=== PATIENT | female | born 1980 | race Caucasian/White ===

== ENCOUNTER 2017-12-17 01:00 | Emergency (ER) | payer OTHER ==
[~2017-12-17] VITALS: Ht 172.7 cm; Wt 113.6 kg
[2017-12-17 01:00] VITALS: TEMP 97.6
[2017-12-17 01:18] LABS: COLLECTION METHOD CATHETER
[2017-12-17 01:19] LABS: ALANINE AMINOTRANSFERASE 29 U/L (9-52); ALBUMIN 3.9 gm/dL (3.5-5.0); ALKALINE PHOSPHATASE 91 U/L (50-136); ANION GAP 14 mmol/L (7-16); AST,SGOT 22 U/L (15-37); BILIRUBIN,TOTAL 0.3 mg/dL (0.0-1.0); BLOOD UREA NITROGEN 8 mg/dL (7-17); CALCIUM 8.5 mg/dL (8.4-10.2); CARBON DIOXIDE 21 mmol/L (22-30); CHLORIDE 106 mmol/L (98-107); CREATININE, serum 0.78 mg/dL (0.52-1.25); GLUCOSE 163 mg/dL (74-106); POTASSIUM 3.1 mmol/L (3.4-5.0); SODIUM 142 mmol/L (137-145); TOTAL PROTEIN 7.5 gm/dL (6.4-8.2)
[2017-12-17 01:22] LABS: BASO % 0.2 % (0.0-2.0); EOS # 0.1 (0.0-0.7); EOS % 0.5 % (0-4.0); GRAN # 6.9 (1.4-6.5); GRAN % 61.3 % (42.2-75.2); HEMATOCRIT 37.1 % (37.0-47.0); HEMOGLOBIN 12.2 g/dl (12.5-16.0); LYMPH # 3.7 (1.2-3.4); MEAN CELL VOLUME 92 fl (80.0-100.0); MEAN CORPUSCULAR HEMOGLOBIN 30 pg (27.0-31.0); MEAN CORPUSCULAR HGB CONC 33 g/dl (33.0-37.0); MEAN PLATELET VOLUME 10.4 fl (7.4-10.4); MONO # 0.5 (0.1-0.6); MONO % 4.8 % (1.7-9.3); PLATELET COUNT 263 K/mm3 (130-400); RED BLOOD COUNT 4.04 M/mm3 (4.10-5.30); REDCELL DISTRIBUTION WIDTH-CV 13.2 % (11.5-14.5)
[2017-12-17 01:24] LABS: MUCOUS Present /lpf; PH 7 (5-8); SQUAMOUS EPITHELIAL 0-2 /hpf; URINE APPEARANCE Clear; URINE BACTERIA None Seen /hpf; URINE BILIRUBIN Negative (NEGATIVE); URINE BLOOD Negative (NEGATIVE); URINE COLOR Straw; URINE GLUCOSE 1+ (NEGATIVE); URINE KETONE Negative (NEGATIVE); URINE LEUKOCYTE ESTERASE Negative (NEGATIVE); URINE NITRATE Negative (NEGATIVE); URINE PROTEIN(semi-quant) Negative (NEGATIVE); URINE RBC 0-2 /hpf; URINE UROBILINOGEN Negative (NEGATIVE)
[2017-12-17 01:25] LABS: PROTHROMBIN TIME 11.7 SECONDS (9.7-12.8)
[2017-12-17 01:28] LABS: ACETAMINOPHEN < 10 ug/mL (10-30); ALCOHOL(ethanol),MEDICAL < 10 mg/dL; CREATINE KINASE 96 U/L (30-135); LIPASE 149 U/L (23-300); SALICYLATE < 1.0 mg/dL; TROPONIN-I < 0.012 ng/mL (0.000-0.034)
[2017-12-17 01:31] LABS: TRICYCLIC ANTIDEPRESS URINE NEGATIVE
[2017-12-17 01:45] LABS: PROLACTIN 107.1 ng/mL (3.0-18.6)
[2017-12-17 01:56] LABS: ARTERIAL BLD GAS O2 SATURATION 97.4 % (92-100); ARTERIAL BLD GAS TCO2 CT 21.5; ARTERIAL BLOOD GAS BASE EXCESS -2.5 (-2-2); ARTERIAL BLOOD GAS HCO3 20.6 meq/L (22-26); ARTERIAL BLOOD GAS PCO2 30.6 mmHg (35-45); ARTERIAL BLOOD GAS PO2 97.1 mmHg (80-100); ARTERIAL BLOOD GAS pH 7.45 (7.35-7.45)
[2017-12-17 02:12] VITALS: BP 163/83; PULSE 77
== END 2017-12-17 02:18 | disposition other institution (70) ==
LOC: COL.ER 01:00 → EDBD 01:07 → COL.ER 02:18
PROVIDERS: Emergency Medicine
DX: I61.4 Nontraumatic intracerebral hemorrhage in cerebellum (principal); Z90.710 Acquired absence of both cervix and uterus
CPT/HCPCS: J0330; J2250; Q9967

== ENCOUNTER 2018-06-15 12:30 | Outpatient (RCR) | payer OTHER | END 2018-06-19 | disposition home or self-care (01) | LOC: MKS.ESL.PT | DX: I69.193 Ataxia following nontraumatic intracerebral hemorrhage (principal); I69.122 Dysarthria following nontraumatic intracerebral hemorrhage; I69.191 Dysphagia following nontraumatic intracerebral hemorrhage; I69.119 Unspecified symptoms and signs involving cognitive functions following nontraumatic intracerebral hemorrhage; I10 Essential (primary) hypertension; Z87.891 Personal history of nicotine dependence ==

== ENCOUNTER → 2018-10-25 | Outpatient (RCR) | payer OTHER | END | disposition still patient (30) | LOC: MKS.ESL.PT → MKS.ESL.OT 07-27 14:34 → MKS.ESL.PT 07-27 14:34 → MKS.ESL.OT 08-31 10:30 → WSST 09-04 12:45 → MKS.ESL.PT 09-06 13:15 → MKS.ESL.OT 09-08 15:30 → WSST 09-11 14:00 → MKS.ESL.OT 09-14 13:00 → MKS.ESL.PT 09-20 12:30 → MKS.ESL.OT 09-22 11:15 → WSST 09-27 12:45 → MKS.ESL.OT 09-29 14:30 → WSST 10-02 12:45 → MKS.ESL.PT 10-03 14:15 → MKS.ESL.OT 10-06 14:00 → MKS.ESL.PT 10-12 16:00 → WSST 10-17 11:15 → MKS.ESL.OT 10-19 13:45 → MKS.ESL.PT 10-24 15:30 → WSST 11:15 | DX: I69.193 Ataxia following nontraumatic intracerebral hemorrhage (principal) ==

== ENCOUNTER 2019-01-23 13:30 | Outpatient (RCR) | payer OTHER | END 2019-01-24 | disposition home or self-care (01) | LOC: MKS.ESL.PT | DX: I69.193 Ataxia following nontraumatic intracerebral hemorrhage (principal); I69.151 Hemiplegia and hemiparesis following nontraumatic intracerebral hemorrhage affecting right dominant side ==

== ENCOUNTER 2019-02-08 14:30 | Outpatient (RCR) | payer OTHER | END 2019-02-12 10:23 | disposition home or self-care (01) | LOC: MKS.ESL.PT 14:30 | DX: I61.9 Nontraumatic intracerebral hemorrhage, unspecified (principal); R27.0 Ataxia, unspecified ==